=== PATIENT | female | born 1935 | race Caucasian/White ===

== ENCOUNTER 2019-08-12 18:11 | Inpatient (IN) | payer MEDICARE, BC ==
[~2019-08-12 18:11] MED LIST: EPHEDRINE 25 MG/5 ML SYRINGE ONE; Fentanyl 100 MCG/2 ML VIAL ONE; Glycopyrrolate 0.2 MG/ML 5 ML SYRINGE ONE; Lidocaine 1% PF 5 ML VIAL ONE; Ondansetron PF 4 MG/2 ML Vial ONE; PROPOFOL 200 MG/20 ML VIAL ONE; Phenylephrine 10 MG/ML VIAL ONE; Rocuronium Bromide 10 MG/ML (10ML VIAL) ONE
[2019-08-12] MEDS ORDERED: Promethazine HCl 25 MG/ML VIAL SLOW IVP PRN (20:01)
[2019-08-12] MEDS ORDERED: Ondansetron HCl/PF 4 MG/2 ML Vial IVP PRN (20:01)
[2019-08-12] MEDS ORDERED: Promethazine HCl 25 MG/ML VIAL IM PRN (20:01)
[2019-08-12] MEDS ORDERED: Fentanyl 100 MCG/2 ML VIAL ONE (20:27)
[2019-08-12] MEDS ORDERED: Dextrose 5% in Water 1,000 ML IV PRN (20:42)
[2019-08-12] MEDS ORDERED: Insulin Regular 300 UNITS/3 ML VIAL SC PRN (20:42)
[2019-08-12] MEDS ORDERED: Dextrose 50% Abboject 50 ML SYRINGE IVP PRN (20:42)
[2019-08-12] MEDS ORDERED: HYDROcodone/Acetaminophen 5/325 mg Tablet PO PRN ×2 (20:45)
--- NOTE | 2019-08-12 21:33 | HP ---
CHIEF COMPLAINT: Right groin pain. HISTORY OF PRESENT ILLNESS: The patient is an 84-year-old white woman, who about 2 weeks ago underwent carotid stenting via a right femoral puncture approach. She apparently had significant hematoma developed. An ultrasonography though technically difficult due to the size of the hematoma and her obesity suggested the presence of a femoral pseudoaneurysm. She underwent essentially daily ultrasonography with attempts at compression and she was discharged home apparently having improved a little over a week ago. She reports that since going home, the size of the hematoma has increased in size and today was sufficiently uncomfortable and alarming in appearance that she presented to the emergency room at the [facility], where the procedure then done. Ultrasonography again showed a large hematoma with a small yin-ribeiro sign at the femoral artery suggesting pseudoaneurysm formation. PAST MEDICAL HISTORY: Significant for coronary artery disease. She describes having undergone cardiac catheterization for exertional chest tightness about 3 years ago. She has diabetes mellitus. She underwent a right modified radical mastectomy in the early 80s. She has undergone hysterectomy and bilateral salpingo-oophorectomy for what she describes as pre-cancerous changes. She recently underwent carotid stenting. HOME MEDICATIONS: 1. Baby aspirin and Plavix daily. 2. Zetia 10 mg a day. 3. Janumet once a day. 4. Coenzyme Q10 100 mg b.i.d. 5. Flonase 2 sprays in the evening. 6. Prilosec 40 mg a day. 7. Repatha twice a month. 8. Tums 500 mg b.i.d. 9. Multivitamin. 10. Vitamin C. 11. Iron. ALLERGIES: SHE REPORTS ALLERGIES OR ADVERSE REACTIONS TO CYMBALTA, LIVALO, AND STATINS. SHE SMOKED BRIEFLY, BUT HAS NOT SINCE THE 1960S. REVIEW OF SYSTEMS: Negative for any eye, speech, facial, or extremity symptoms consistent with TIAs. She had some orthostatic dizziness that she says has resolved since her stenting. She currently has no exertional chest pain and no shortness of breath. PHYSICAL EXAMINATION: VITAL SIGNS: Stable. She was afebrile. She is short and obese. HEENT: She has no carotid bruits. CHEST: Clear to auscultation. She has a well-healed surgical incision, status post right modified radical mastectomy. HEART: She has regular rate and rhythm without obvious murmur or gallop. ABDOMEN: Obese, soft, and nontender. EXTREMITIES: She has extensive bruising in the right groin with a pointing hematoma with some shiny thinning of the skin. She has bruising that extends well onto the thigh, the mons, and her flank. She has modest ankle edema. She has a nonpalpable dorsalis pedis pulse, but a palpable posterior tibial pulse on that side. LABORATORY DATA: Ultrasonography is as described above. Her white count was 10.3, hemoglobin 10.9, hematocrit 33.3, platelets 433,000. Electrolytes were normal. Glucose 115, BUN 13, creatinine 0.5. IMPRESSION AND PLAN: Large hematoma in the right groin associated with pseudoaneurysm with thinning of the skin. We will plan on open drainage of the hematoma and exploration repair of the femoral artery. Job ID: [id number]
[2019-08-12 21:41] VITALS: BMI 38.4
[2019-08-12] MEDS ORDERED: Ketorolac Tromethamine 30 MG/ML VIAL IVP SCH (22:00)
--- NOTE | 2019-08-13 01:01 | OP ---
DATE OF PROCEDURE: 08/12/2019 PROCEDURES PERFORMED: Evacuation of right groin hematoma, exploration and repair of right common femoral artery, repair of right common femoral vein. PREOPERATIVE DIAGNOSIS: Pseudoaneurysm with associated right groin hematoma, status post carotid stenting. POSTOPERATIVE DIAGNOSIS: Pseudoaneurysm with associated right groin hematoma, status post carotid stenting. ANESTHESIA: General endotracheal anesthesia. INDICATIONS: The patient is an 84-year-old woman, who underwent carotid stenting through the right femoral approach. She had hematoma formation at the groin and the ultrasonographic evidence to suggest pseudoaneurysm formation and several attempts at ultrasound-directed pressure were undertaken. She, after going home, had progression of swelling and bruising associated with the wound and she was found to have a very large hematoma and again, ultrasonographic findings to suggest a pseudoaneurysm. FINDINGS: Grapefruit sized cavity associated with about 500 mL of clot and old blood. There is a ballotable posterior wall to that cavity overlying the femoral pulse and there was a small defect in the distal common femoral artery anterolaterally deep to some fibrotic material. There was small bleeding puncture area on the lateral aspect of the common femoral vein. DESCRIPTION OF PROCEDURE: After informed consent was obtained, the patient was taken to the operating room, placed in supine position on the operating table. After the induction of general anesthesia, the patient's lower abdomen, groin, and right lower extremity were prepped and draped in sterile fashion. An oblique incision parallel to the groin crease was made at the superior margin of the bulging hematoma. There was no well-formed cavity anteriorly and the hematoma cavity was entered just a couple of millimeters deep to the skin surface. A large amount of clot was evacuated, so it was tracking along the inner thigh medially. There was no ongoing bleeding, but there was a ballotable area of that posterior wall overlying the palpable femoral pulse. The femoral artery was exposed just distal to that as it was not feasible to clearly identify the vessel proximally in that wound, where as it was quite readily feasible to cut down on the superficial femoral artery distal to that ballotable area. The superficial femoral artery was exposed and careful sharp dissection was made along its course as the course of the vessel could be more clearly identified. The overlying fibrotic tissue was incised with the electrocautery and subcutaneous veins encountered were controlled with the cautery or prolene sutures. A fibrotic plug overlying the distal common femoral artery with a little bit of bleeding from its superior margin was identified. The femoral artery was then exposed up to about the level of the inguinal ligament beyond that plug and no defects could be identified. In the course of the dissection, some bleeding from the femoral vein was encountered. There was blood staining in the vessel wall suggestive of an old puncture site that had become unroofed. This was controlled with a pursestring suture. The fibrotic material overlying the distal common femoral artery was then unroofed. There was a very thin membrane of tissue that was bulging out at that point. This was also controlled with a pursestring Prolene suture. The wound was then inspected for hemostasis and irrigated. A 24-Spanish bulb suction drain was placed into the wound, bringing out through a separate stab incision, taking the course of it through the most gravity dependent area of the cavity, where it tracked medially. The wound was then closed in 2 layers of subcutaneous Vicryl and a running Vicryl subcuticular suture. The wound was dressed. The patient was awakened and extubated in the operating room and taken to the recovery area in stable condition. Job ID: [id number]
[2019-08-13 04:52] LABS: #Eosinphils 0.2 thou/uL (0.0-0.7); #Lymphocytes 1.7 thou/uL (1.20-3.40); #Monocytes 0.7 thou/uL (0.11-0.59); #Neutrophils 8.2 thou/uL (1.40-6.50); %Basophils 0.3 % (0.0-1.0); %Eosinophils 1.7 % (0.0-10.0); %Lymphocytes 15.8 % (21.0-51.0); %Monocytes 6.2 % (0.0-10.0); Hemoglobin 9.9 g/dL (12.0-16.0); Mean Corpuscular HGB CONC 33.8 g/dL (32.0-36.0); Mean Corpuscular Volume 97.5 fL (78.0-98.0); Mean Platelet Volume 7.4 fL (7.4-10.4); Platelet Count 365 thou/uL (130-400); RBC Distribution Width 14.5 % (11.5-14.5); White Blood Cell (WBC) Count 10.7 thou/uL (4.8-10.8)
[2019-08-13 05:16] LABS: Anion Gap 12 mmol/L (10-20); BUN (Urea Nitrogen) 11 mg/dL (9.8-20.1); Calc. Creatinine Clearance 123 mL/min (70-130); Calcium 8.6 mg/dL (7.8-10.44); Carbon Dioxide 25 mmol/L (23-31); Chloride 100 mmol/L (98-107); Estimated GFR-MDRD Greater than 90; Glucose 99 mg/dL (83-110); Sodium 133 mmol/L (136-145)
[2019-08-13] MEDS: Ketorolac Tromethamine 30 MG/ML VIAL IVP SCH ×2 (05:54→12:30)
[2019-08-13] MEDS ORDERED: Aspirin Chewable 81 MG TAB PO SCH (08:00)
[2019-08-13] MEDS ORDERED: Clopidogrel Bisulfate 75 MG TAB PO SCH (09:00)
[2019-08-13 12:03] VITALS: BP 136/69; TEMP 98.4
--- NOTE | 2019-08-14 02:49 | DIS ---
DATE OF ADMISSION: 08/12/2019 DATE OF DISCHARGE: 08/13/2019 PRINCIPAL DIAGNOSES: Right groin hematoma and right femoral pseudoaneurysm. PROCEDURES PERFORMED: Evacuation of right groin hematoma, exploration and repair of right femoral artery. HISTORY OF PRESENT ILLNESS AND HOSPITAL COURSE: The patient is an 84-year-old woman, who about 2 weeks ago underwent stenting of carotid artery through a right femoral approach. She developed hematoma postprocedure and serial ultrasonography suggested the presence of a pseudoaneurysm, and repeated attempts were made to seal it through ultrasound directed pressure. After apparent success, she was discharged home, but she then had a steady increase in size of the hematoma in her groin with considerable amount of discomfort associated with it. Ultrasonographically, there was again suggestion of a pseudoaneurysm. She was taken to the operating room and underwent evacuation of a very large localized hematoma, the posterior wall of the cavity was ballotable, where it coursed over the femoral artery. The femoral artery was explored and defect in the anterolateral wall of the distal common femoral artery was unroofed. This was repaired with a pursestring suture. Bleeding from what appeared to most likely represent a puncture site in the lateral wall of the common femoral vein was also encountered. This was also repaired with a pursestring suture. The wound was drained and she was observed overnight on telemetry. She had no significant arrhythmias. On postoperative day one, she had had approximately 100 mL of bloody drainage through her drain overnight. She was able to void after removal of her Rodriguez catheter and she was able to ambulate adequately. She was taught how to take care of her drain and she was discharged home with prescription for Larwill as needed for pain. I will plan on seeing her in the office in roughly a week with the anticipation of removing her drain at that time. Job ID: [id number]
--- NOTE | 2019-08-16 03:04 | PQF ---
CHAPO BLACK GEORG [id number] [facility] [id number] CLINICAL DOCUMENTATION CLARIFICATION FORM: POST DISCHARGE Addendum to original discharge summary date: ____ Late entry note date: __ DATE: 08/16/2019 ATTN: Polo Packer Please exercise your independent, professional judgment in responding to the clarification form. Clinical indicators are provided on the bottom of this form for your review Please check appropriate box(s): [ x ] Right femoral pseudoaneurysm and hematoma as a complication of recent carotid stenting [ ] Right femoral pseudoaneurysm and hematoma not a complication of recent carotid stenting [ ] Other diagnosis [ ] Unable to determine CLINICAL INDICATORS - SIGNS / SYMPTOMS / LABS 08/11 "CC: right groin pain" 08/11 "2 weeks ago underwent carotid stenting via a right femoral puncture approach" 08/11 "had developed significant hematoma" 08/11 "Ultrasonography again showed a large hematoma with a small yin-ribeiro sign at the femoral artery suggesting pseudoaneurysm formation" 08/11 "Extremities:she has extensive bruising in the right groin" OP Note 08/11 "pseudoaneurysm with associated right groin hematoma, status post carotid stenting" OP Note 08/11 "grapefruit sized cavity associated with about 200ml of clot and old blood" RISK FACTORS 08/11-84 years old female 08/11-Obesity 08/11-s/p carotid stenting 08/11-DM HP 08/11-CAD TREATMENT: 08/11-Ultrasound for right groin OP Note 08/11-Evacuation of hematoma and repair or femoral artery/vein MAR 08/01-IVF (This form is maintained as a part of the permanent medical record) 2014 [employer]. All Rights Reserved [email or web address]
--- NOTE | 2019-08-16 03:09 | PQF ---
CHAPO BLACK GEORG [id number] [facility] [id number] CLINICAL DOCUMENTATION CLARIFICATION FORM: POST DISCHARGE Addendum to original discharge summary date: ____ Late entry note date: __ DATE: 08/16/2019 ATTN: Polo Packer Please exercise your independent, professional judgment in responding to the clarification form. Clinical indicators are provided on the bottom of this form for your review Please check appropriate box(s): In the description of the operative procedure a small bleeding puncture was noted by the surgeon. If possible would you please further clarify if this was: [ ] Incidental occurrence inherent in the surgical procedure [ ] Complication of the procedure [ x ] Other surgical finding [ ] Unable to determine For continuity of documentation, please document condition throughout progress notes and discharge summary. Thank You. CLINICAL INDICATORS - SIGNS / SYMPTOMS / LABS OP Note 08/11 "There was small bleeding puncture are on the lateral aspect of the common femoral vein" OP Note 08/11 "There was blood staining in the vessel wall suggestive of an old puncture site that has become unroofted" OP Note 08/11 "grapefruit sized cavity associated with about 200ml of clot and old blood" 08/11 "2 weeks ago underwent carotid stenting via a right femoral puncture approach" 08/11 "Ultrasonography again showed a large hematoma with a small yin-ribeiro sign at the femoral artery suggesting pseudoaneurysm formation" 08/11 "Extremities:she has extensive bruising in the right groin" RISK FACTORS 08/11-84 years old female 08/11-Obesity 08/11-s/p carotid stenting 08/11-DM 08/11-CAD TREATMENTS: 08/11-Ultrasound for right groin OP Note 08/11-Evacuation of hematoma and repair or femoral artery/vein AUG 02-IVF (This form is maintained as a part of the permanent medical record) 2014 [employer] All Rights Reserved [email or web address]
== END 2019-08-13 16:15 | disposition home or self-care (01) | DRG 253 ==
LOC: SDC/OP 18:11 → 2NO 20:00
PROVIDERS: ADMIT Thoracic Surgery (Cardiothoracic Vascular Surgery); ATTEND Thoracic Surgery (Cardiothoracic Vascular Surgery)
PROC: 04CK0ZZ Extirpation of Matter from Right Femoral Artery, Open Approach (ICD-10-PCS; principal; 2019-08-12)
PROC: 0Y370ZZ Control Bleeding in Right Femoral Region, Open Approach (ICD-10-PCS; 2019-08-12)
DX: T81.718A Complication of other artery following a procedure, not elsewhere classified, initial encounter (principal); I97.638 Postprocedural hematoma of a circulatory system organ or structure following other circulatory system procedure; I72.4 Aneurysm of artery of lower extremity; I10 Essential (primary) hypertension; F17.200 Nicotine dependence, unspecified, uncomplicated; E66.9 Obesity, unspecified; I25.10 Atherosclerotic heart disease of native coronary artery without angina pectoris; E11.9 Type 2 diabetes mellitus without complications; Y83.8 Other surgical procedures as the cause of abnormal reaction of the patient, or of later complication, without mention of misadventure at the time of the procedure; Z90.11 Acquired absence of right breast and nipple; Z90.710 Acquired absence of both cervix and uterus; Z90.722 Acquired absence of ovaries, bilateral; Z79.51 Long term (current) use of inhaled steroids; Z79.01 Long term (current) use of anticoagulants; Z79.84 Long term (current) use of oral hypoglycemic drugs; Z79.82 Long term (current) use of aspirin; Z79.899 Other long term (current) drug therapy; Z91.09 Other allergy status, other than to drugs and biological substances; Z68.38 Body mass index [BMI] 38.0-38.9, adult; Z95.5 Presence of coronary angioplasty implant and graft; Z79.4 Long term (current) use of insulin
CPT/HCPCS: 36415; 36416; 80048; 85025; J1815; J1885; J2001; J2370; J2405; J2704; J3010; J7620

== ENCOUNTER 2021-02-06 07:46 | Outpatient (CLI) | payer MEDICARE, BC | END 2021-02-06 07:47 | disposition home or self-care (01) | LOC: PET 07:46 | PROVIDERS: ATTEND Family Medicine | DX: E27.8 Other specified disorders of adrenal gland (principal); D44.12 Neoplasm of uncertain behavior of left adrenal gland | CPT/HCPCS: 78815; A9552 ==

== ENCOUNTER 2024-06-28 14:38 | Inpatient (IN) | payer MEDICARE ==
[2024-06-28 17:29] LABS: #Basophils Less than 0.03 10x3/uL (0.0-0.2); %Basophils 0.1 % (0.0-1.0); %Eosinophils 0.3 % (0.0-10.0); %Lymphocytes 1.1 % (21.0-51.0); %Monocytes 4.2 % (0.0-10.0); %Neutrophils 93.7 % (42.0-75.0); Hematocrit 37.9 % (36.0-47.0); Hemoglobin 13.8 g/dL (12.0-16.0); Mean Corpuscular HGB CONC 36.4 g/dL (32.0-36.0); Mean Corpuscular Hemoglobin 31.7 pg (27.0-31.0); Mean Corpuscular Volume 87.1 fL (78.0-98.0); Mean Platelet Volume 8.9 fL (7.4-10.4); Platelet Count 443 10x3/uL (130-400); RBC Distribution Width 11.4 % (11.5-14.5); Red Blood Cell (RBC) Count 4.35 mill/uL (4.20-5.40)
[2024-06-28 17:42] LABS: Lipase 37 U/L (8-78); Magnesium 1.4 mg/dL (1.6-2.6)
[2024-06-28 17:43] LABS: PTT 26.9 sec (22.9-36.1); Prothrombin Time 13.1 sec (12.0-14.7)
[2024-06-28] MEDS ORDERED: Magnesium 2 GM/50 ML BAG (IN WATER) ONE (17:49)
[2024-06-28] MEDS ORDERED: Morphine 2 MG/ML VIAL ONE (17:49)
[2024-06-28] MEDS ORDERED: Ondansetron PF 4 MG/2 ML Vial ONE (17:49)
[2024-06-28 17:51] LABS: ALT (SGPT) 24 U/L (Less than 34); AST (SGOT) 40 U/L (11-34); Albumin 3.6 g/dL (3.1-4.5); Alkaline Phosphatase 92 U/L (40-110); Anion Gap 14 mmol/L (10-20); BUN (Urea Nitrogen) 6 mg/dL (9.8-20.1); Bilirubin, Total 0.6 mg/dL (0.3-1.2); Calc. Creatinine Clearance 0 mL/min (70-130); Calcium 8.8 mg/dL (7.8-10.44); Carbon Dioxide 25 mmol/L (23-31); Chloride 76 mmol/L (98-107); Estimated GFR 96; Globulin 4.1 g/dL (2.4-3.5); Glucose 144 mg/dL (83-110); Potassium 3.7 mmol/L (3.5-5.1); Protein, Total 7.7 g/dL (5.8-8.1); Sodium 111 mmol/L (136-145)
[2024-06-28] MEDS ORDERED: hydrALAZINE 20 MG/ML VIAL ONE (19:19)
[2024-06-28] MEDS ORDERED: Glucagon 1 MG/ML KIT IM PRN (21:25)
[2024-06-28] MEDS ORDERED: Insulin Regular, Human 100 UNIT/ML 10 ML VIAL SC PRN (21:25)
[2024-06-28] MEDS ORDERED: Dextrose 5% in Water 1,000 ML IV PRN (21:25)
[2024-06-28] MEDS ORDERED: Dextrose 50% Abboject 50 ML SYRINGE SLOW IVP PRN (21:25)
[2024-06-28 22:06] LABS: Anion Gap 14 mmol/L (10-20); BUN (Urea Nitrogen) 6 mg/dL (9.8-20.1); Calc. Creatinine Clearance 0 mL/min (70-130); Calcium 8.3 mg/dL (7.8-10.44); Carbon Dioxide 25 mmol/L (23-31); Chloride 75 mmol/L (98-107); Estimated GFR 97; Glucose 121 mg/dL (83-110); Sodium 110 mmol/L (136-145)
[2024-06-28 22:23] VITALS: BMI 37.0
[2024-06-28] MEDS ORDERED: Electrolyte Replacement Protocol 1 EACH FS SCH (22:45)
[2024-06-28] MEDS: hydrALAZINE 20 MG/ML VIAL SLOW IVP PRN (23:11)
[2024-06-28] MEDS ORDERED: niCARdipine 25 MG in Sodium Chloride 0.9% 250 ML 250 ML IVPB SCH (23:15)
[2024-06-28] MEDS: Sodium Chloride 3% 100 ML IVPB SCH (23:16)
[2024-06-29 00:37] LABS: Bacteria/HPF None Seen HPF (None Seen); Bilirubin Negative (Negative); Blood, Urine Trace (Negative); CAUTI Indications for Culture Alt mental st,lethar; Clarity Clear (Clear); Glucose, Urine (Dipstick) 70 mg/dL (Negative); Ketone, Urine 40 mg/dL (Negative); Leukocyte Negative Leu/uL (Negative); Nitrite Negative (Negative); Protein, Urine (Dipstick) 30 mg/dL (Neg-Trace); Squamous Epithelial None Seen HPF (0-3); Urobilinogen Normal mg/dL (Less than 2); WBC/HPF 0-3 HPF (0-3)
[2024-06-29 00:38] LABS: Specific Gravity, Urine 1.045 (1.002-1.036)
[2024-06-29 00:39] LABS: Urine Culture Reflex No No
[2024-06-29 03:28] LABS: Actual Bicarbonate (HCO3v) 27.5 mEq/L (22-28); Base Excess 0.6 mEq/L (-2.0 to +3.0); Calcium, Ionized (venous) 1.05 mmol/L (1.16-1.32); Chloride (VBG) 78 mmol/L (98-106); Hematocrit-VBG 40 % (36.0-47.0); Hemoglobin (Hb) 13.7 g/dL (11.7-16.1); Potassium (VBG) 3.54 mmol/L (3.70-5.30)
[2024-06-29 03:29] LABS: Sodium 115 mmol/L (133-146)
[2024-06-29 04:03] LABS: Hematocrit 34.2 % (36.0-47.0); Hemoglobin 12.5 g/dL (12.0-16.0); Mean Corpuscular HGB CONC 36.5 g/dL (32.0-36.0); Mean Corpuscular Hemoglobin 32.2 pg (27.0-31.0); Mean Corpuscular Volume 88.1 fL (78.0-98.0); Mean Platelet Volume 9.1 fL (7.4-10.4); Platelet Count 422 10x3/uL (130-400); RBC Distribution Width 11.4 % (11.5-14.5); Red Blood Cell (RBC) Count 3.88 mill/uL (4.20-5.40)
[2024-06-29 04:46] LABS: Band 3 % (5-11); Large Platelets 2.9 % (0-5); Lymphocytes 2 % (21-51); Monocytes 18 % (0-10); Neutrophil 76 % (42-75); Platelet Adequacy Comment Platelets Normal; RBC Morphology Within Normal Limits; Reactive Lymphocytes 1 % (0-10); Smudge Cells 1.9 %
[2024-06-29 07:08] LABS: Anion Gap 14 mmol/L (10-20); BUN (Urea Nitrogen) 7 mg/dL (9.8-20.1); Calc. Creatinine Clearance 131 mL/min (70-130); Calcium 8.2 mg/dL (7.8-10.44); Carbon Dioxide 27 mmol/L (23-31); Chloride 79 mmol/L (98-107); Estimated GFR 94; Glucose 108 mg/dL (83-110); Magnesium 1.8 mg/dL (1.6-2.6); Potassium 3.5 mmol/L (3.5-5.1); Sodium 116 mmol/L (136-145)
[2024-06-29] MEDS: Potassium Chloride 20 MEQ in Premix 1 BAG IVPB SCH (08:46)
[2024-06-29] MEDS: Magnesium 2 GM/50 ML(in water) 2 GM in Premix 1 BAG IVPB SCH (08:46)
[2024-06-29] MEDS: Enoxaparin 40 MG (0.4 mL) SYRINGE SC SCH (08:46)
[2024-06-29] MEDS: Potassium Chloride 20 MEQ TAB PO SCH (09:05)
[2024-06-29] MEDS: Benzonatate 100 MG CAP PO PRN (09:07)
[2024-06-29] MEDS: Ondansetron PF 4 MG/2 ML Vial IVP PRN (09:08)
[2024-06-29 10:06] LABS: Sodium 111 mmol/L (136-145)
[2024-06-29] MEDS: Sodium Chloride 3% 100 ML IVPB SCH ×2 (10:26→20:58)
[2024-06-29] MEDS: guaiFENesin ER 600 MG TAB PO SCH ×2 (10:26→22:02)
[2024-06-29] MEDS: Ipratropium/Albuterol 3 ML NEB NEB SCH (10:26)
[2024-06-29 11:36] LABS: Sodium 115 mmol/L (136-145)
[2024-06-29 12:07] LABS: Potassium 3.5 mmol/L (3.5-5.1); Sodium 116 mmol/L (136-145)
[2024-06-29] MEDS: Acetaminophen 325 MG TAB PO PRN (15:56)
[2024-06-29 18:13] LABS: Potassium 4.3 mmol/L (3.5-5.1)
[2024-06-29 18:36] LABS: Sodium 115 mmol/L (136-145)
[2024-06-29] MEDS: hydrALAZINE 20 MG/ML VIAL SLOW IVP PRN (20:36)
[2024-06-29 21:52] LABS: Potassium 4.5 mmol/L (3.5-5.1); Sodium 114 mmol/L (136-145)
[2024-06-30] MEDS: Ipratropium/Albuterol 3 ML NEB NEB PRN (03:02)
[2024-06-30 05:00] LABS: #Basophils Less than 0.03 10x3/uL (0.0-0.2); %Basophils 0.1 % (0.0-1.0); %Eosinophils 0.2 % (0.0-10.0); %Lymphocytes 1.6 % (21.0-51.0); %Monocytes 4.3 % (0.0-10.0); %Neutrophils 93.4 % (42.0-75.0); Hematocrit 36.1 % (36.0-47.0); Hemoglobin 12.7 g/dL (12.0-16.0); Mean Corpuscular HGB CONC 35.2 g/dL (32.0-36.0); Mean Corpuscular Hemoglobin 31.5 pg (27.0-31.0); Mean Corpuscular Volume 89.6 fL (78.0-98.0); Mean Platelet Volume 9.4 fL (7.4-10.4); Platelet Count 430 10x3/uL (130-400); RBC Distribution Width 11.7 % (11.5-14.5); Red Blood Cell (RBC) Count 4.03 mill/uL (4.20-5.40)
[2024-06-30 05:02] LABS: Anion Gap 12 mmol/L (10-20); BUN (Urea Nitrogen) 12 mg/dL (9.8-20.1); Calc. Creatinine Clearance 134 mL/min (70-130); Calcium 8.3 mg/dL (7.8-10.44); Carbon Dioxide 27 mmol/L (23-31); Chloride 80 mmol/L (98-107); Estimated GFR 94; Glucose 137 mg/dL (83-110); Potassium 4.4 mmol/L (3.5-5.1); Sodium 115 mmol/L (136-145)
[2024-06-30] MEDS: Magnesium 2 GM/50 ML(in water) 2 GM in Premix 1 BAG IVPB SCH (08:32)
[2024-06-30] MEDS: Tolvaptan 15 MG TAB PO SCH (09:57)
[2024-06-30] MEDS: Loratadine 10 MG/10 ML UDCUP PO SCH (09:57)
[2024-06-30 11:24] LABS: Anion Gap 11 mmol/L (10-20); BUN (Urea Nitrogen) 12 mg/dL (9.8-20.1); Calc. Creatinine Clearance 140 mL/min (70-130); Calcium 8.7 mg/dL (7.8-10.44); Carbon Dioxide 29 mmol/L (23-31); Chloride 82 mmol/L (98-107); Estimated GFR 96; Glucose 157 mg/dL (83-110); Potassium 4.3 mmol/L (3.5-5.1); Sodium 118 mmol/L (136-145)
[2024-06-30] MEDS ORDERED: Calcium Carbonate 500 MG ChewTAB PO PRN (12:15)
[2024-06-30] MEDS ORDERED: Labetalol HCl 100 MG/20 ML VIAL SLOW IVP PRN (12:16)
[2024-06-30] MEDS: Fluticasone Propionate Nasal Spray 16 gm Bottle NASAL SCH (13:03)
[2024-06-30] MEDS: Losartan 25 MG TAB PO SCH (13:04)
[2024-06-30 18:08] LABS: Potassium 4.3 mmol/L (3.5-5.1); Sodium 119 mmol/L (136-145)
[2024-06-30] MEDS: Mometasone 100 MCG/Formoterol 5 MCG 120 PUFF INHALER INH SCH (19:46)
[2024-06-30] MEDS ORDERED: ICOSAPENT ETHYL 1 GM PO SCH (21:00)
[2024-06-30] MEDS: Famotidine/PF 20 mg/2ml Vial SLOW IVP SCH (21:24)
[2024-06-30] MEDS: Ezetimibe 10 MG TAB PO SCH (21:24)
[2024-07-01 04:30] LABS: Hematocrit 35.9 % (36.0-47.0); Hemoglobin 12.6 g/dL (12.0-16.0); Mean Corpuscular HGB CONC 35.1 g/dL (32.0-36.0); Mean Corpuscular Hemoglobin 31.4 pg (27.0-31.0); Mean Corpuscular Volume 89.5 fL (78.0-98.0); Mean Platelet Volume 8.9 fL (7.4-10.4); Platelet Count 456 10x3/uL (130-400); RBC Distribution Width 11.9 % (11.5-14.5); Red Blood Cell (RBC) Count 4.01 mill/uL (4.20-5.40)
[2024-07-01 04:59] LABS: Lymphocytes 2 % (21-51); Monocytes 16 % (0-10); Myelocyte 1 % (0-0); Neutrophil 80 % (42-75); Plasma Cells 1 % (0-0); Platelet Adequacy Comment Platelets Normal; RBC Morphology Within Normal Limits
[2024-07-01 05:45] LABS: Anion Gap 13 mmol/L (10-20); BUN (Urea Nitrogen) 7 mg/dL (9.8-20.1); Calc. Creatinine Clearance 127 mL/min (70-130); Calcium 8.4 mg/dL (7.8-10.44); Carbon Dioxide 28 mmol/L (23-31); Chloride 89 mmol/L (98-107); Estimated GFR 94; Glucose 105 mg/dL (83-110); Sodium 126 mmol/L (136-145)
[2024-07-01] MEDS: Losartan 25 MG TAB PO SCH (09:22)
[2024-07-01] MEDS: Alogliptin 6.25 MG TAB PO SCH (09:22)
[2024-07-01] MEDS: metFORMIN 500 MG TAB PO SCH (09:22)
[2024-07-01] MEDS: Aspirin 81 mg Enteric Coated Tablet PO SCH (09:22)
[2024-07-01] MEDS: Cholecalciferol 1,000 UNITS (25 MCG) TAB PO SCH (09:22)
[2024-07-01] MEDS: Magnesium 2 GM/50 ML(in water) 2 GM in Premix 1 BAG IVPB SCH (13:23)
[2024-07-01 19:09] LABS: Potassium 3.9 mmol/L (3.5-5.1); Sodium 126 mmol/L (136-145)
[2024-07-01] MEDS: Tolvaptan 15 MG TAB PO SCH (21:00)
[2024-07-02 04:08] LABS: Anion Gap 12 mmol/L (10-20); BUN (Urea Nitrogen) 15 mg/dL (9.8-20.1); Calc. Creatinine Clearance 78 mL/min (70-130); Calcium 8.6 mg/dL (7.8-10.44); Carbon Dioxide 28 mmol/L (23-31); Chloride 92 mmol/L (98-107); Estimated GFR 90; Glucose 98 mg/dL (83-110); Potassium 3.8 mmol/L (3.5-5.1); Sodium 128 mmol/L (136-145)
[2024-07-02] MEDS: Tolvaptan 15 MG TAB PO SCH (04:29)
[2024-07-02 14:45] VITALS: BMI 25.9
[2024-07-02 19:47] LABS: Potassium 3.7 mmol/L (3.5-5.1); Sodium 134 mmol/L (136-145)
[2024-07-03 04:10] LABS: #Basophils 0.03 10x3/uL (0.0-0.2); %Basophils 0.2 % (0.0-1.0); %Eosinophils 0.5 % (0.0-10.0); %Lymphocytes 2.3 % (21.0-51.0); %Monocytes 9.2 % (0.0-10.0); %Neutrophils 87.1 % (42.0-75.0); Hematocrit 35.9 % (36.0-47.0); Hemoglobin 11.9 g/dL (12.0-16.0); Mean Corpuscular HGB CONC 33.1 g/dL (32.0-36.0); Mean Corpuscular Hemoglobin 31.6 pg (27.0-31.0); Mean Corpuscular Volume 95.2 fL (78.0-98.0); Mean Platelet Volume 8.6 fL (7.4-10.4); Platelet Count 443 10x3/uL (130-400); RBC Distribution Width 12.5 % (11.5-14.5); Red Blood Cell (RBC) Count 3.77 mill/uL (4.20-5.40)
[2024-07-03 04:30] LABS: Anion Gap 13 mmol/L (10-20); BUN (Urea Nitrogen) 11 mg/dL (9.8-20.1); Calc. Creatinine Clearance 88 mL/min (70-130); Calcium 8.8 mg/dL (7.8-10.44); Carbon Dioxide 30 mmol/L (23-31); Chloride 95 mmol/L (98-107); Estimated GFR 93; Glucose 105 mg/dL (83-110); Potassium 3.4 mmol/L (3.5-5.1); Sodium 135 mmol/L (136-145)
[2024-07-03] MEDS: Potassium Chloride 20 MEQ TAB PO SCH (09:01)
[2024-07-03 12:26] VITALS: BP 152/73; TEMP 98.5
[2024-07-03] MEDS: Insulin Regular, Human 100 UNIT/ML 10 ML VIAL SC PRN (13:06)
== END 2024-07-03 13:45 | DRG 643 ==
LOC: ERS 14:38 → CCU 20:14 → IMCU/EMU 06-29 14:34 → PCU 06-30 18:31
PROVIDERS: ADMIT Internal Medicine; ATTEND Family Medicine
DX: E22.2 Syndrome of inappropriate secretion of antidiuretic hormone (principal); G93.41 Metabolic encephalopathy; I25.10 Atherosclerotic heart disease of native coronary artery without angina pectoris; E83.42 Hypomagnesemia; I10 Essential (primary) hypertension; I16.0 Hypertensive urgency; D72.829 Elevated white blood cell count, unspecified; E11.9 Type 2 diabetes mellitus without complications; Z90.79 Acquired absence of other genital organ(s); Z85.3 Personal history of malignant neoplasm of breast; Z88.8 Allergy status to other drugs, medicaments and biological substances; Z91.048 Other nonmedicinal substance allergy status; Z91.09 Other allergy status, other than to drugs and biological substances
CPT/HCPCS: 36415; 36416; 70450; 71045; 74177; 80048; 80053; 81001; 82805; 83605; 83690; 83735; 83880; 83930; 83935; 84300; 84443; 84484; 85025; 85610; 85730; 87040; 93005; 94640; 96365; 96375; 99292; J0360; J1650; J1815; J2272; J2405; J3475; J3480; J3490; J7131; J7620